=== PATIENT | female | born 1975 | race Caucasian/White ===

== ENCOUNTER → 2016-12-30 | Outpatient (CLI) | payer MEDICAID | END | disposition home or self-care (01) | LOC: CARD 12:12 | PROVIDERS: ATTEND Nurse Practitioner | DX: R06.02 Shortness of breath (principal) | CPT/HCPCS: 94060; 94620; 94726; 94729 ==

== ENCOUNTER 2019-10-29 14:45 | Outpatient (CLI) | payer MEDICAID ==
[2019-10-29] MEDS ORDERED: ERGO500017 PO (15:39)
[2019-10-29] MEDS ORDERED: ALPR0.5T6 PO (15:39)
== END 2019-10-29 23:59 | disposition home or self-care (01) ==
LOC: STAR 14:45
PROVIDERS: ATTEND Internal Medicine
DX: Z02.9 Encounter for administrative examinations, unspecified (principal)

== ENCOUNTER 2019-11-02 10:29 | Day surgery (SDC) | payer MEDICAID ==
[~2019-11-02] VITALS: Ht 157.5 cm; Wt 51.2 kg
[~2019-11-02 10:29] MED LIST: ALPR0.5T6 PO; ERGO500017 PO
[2019-11-02] MEDS ORDERED: LACTATED RINGERS 1,000 ML IV ONE (10:40)
[2019-11-02 10:42] VITALS: BP 123/89
[2019-11-02 11:15] LABS: HCG UR SG 1.016 (1.003-1.030)
[2019-11-02] MEDS ORDERED: MIDAZOLAM 1 MG/ML, 2ML ONE (11:43)
[2019-11-02] MEDS ORDERED: FENTANYL PF 250 MCG/5ML ONE (11:43)
[2019-11-02] MEDS ORDERED: METOPROLOL 1 MG/ML, 5ML IV PRN (13:00)
[2019-11-02] MEDS ORDERED: HYDROmorphone 2 MG/ML, 1ML IVPush PRN (13:00)
[2019-11-02] MEDS ORDERED: FENTANYL PF 100 MCG/2ML IV PRN (13:00)
[2019-11-02] MEDS ORDERED: hydrALAzine 20 MG/ML, 1ML IV PRN (13:00)
[2019-11-02] MEDS ORDERED: OXYcodone 5 MG/5 ML ORAL.SOL UDC PO PRN (13:00)
[2019-11-02] MEDS ORDERED: MIDAZOLAM 1 MG/ML, 2ML IV PRN (13:00)
[2019-11-02] MEDS ORDERED: ALBUTEROL/IPRATROPIUM 2.5MG/0.5MG, 3 ML NPPB PRN (13:00)
[2019-11-02] MEDS ORDERED: MEPERIDINE/PF 25MG/ML,1ML IVPush PRN (13:00)
[2019-11-02] MEDS ORDERED: ACETAMINOPHEN 325 MG TABLET PO PRN (13:00)
[2019-11-02] MEDS ORDERED: PROMETHAZINE 25 MG/ML, 1ML IV PRN (13:00)
[2019-11-02] MEDS ORDERED: ROCURONIUM 10MG/ML,5ML ONE (13:22)
[2019-11-02] MEDS ORDERED: DEXAMETHASONE 4 MG/ML, 1ML ONE (13:22)
[2019-11-02] MEDS ORDERED: NEOSTIGMINE 1 MG/ML, 10ML ONE (13:22)
[2019-11-02] MEDS ORDERED: PROPOFOL 10 MG/ML, 20ML ONE (13:22)
[2019-11-02] MEDS ORDERED: ONDANSETRON 2MG/ML, 2ML ONE (13:22)
[2019-11-02] MEDS ORDERED: GLYCOPYRROLATE 0.2MG/1ML, 5ML ONE (13:22)
[2019-11-02] MEDS ORDERED: FENTANYL PF 100 MCG/2ML ONE (13:32)
== END 2019-11-02 15:20 | disposition home or self-care (01) ==
LOC: OUT 10:29
PROVIDERS: ATTEND Internal Medicine
DX: R91.8 Other nonspecific abnormal finding of lung field (principal); J44.9 Chronic obstructive pulmonary disease, unspecified; F41.9 Anxiety disorder, unspecified; F17.210 Nicotine dependence, cigarettes, uncomplicated; Z79.899 Other long term (current) drug therapy
CPT/HCPCS: 31624; 31627; 31628; 36415; 71045; 81025; 86480; 86635; 86698; 87015; 87070; 87102; 87116; 87181; 87186; 87205; 87206; 88112; 88172; 88173; 88177; 88305; J1100; J2250; J2405; J2704; J2710; J3010; J7120; 76000

== ENCOUNTER 2019-12-04 12:12 | Outpatient (CLI) | payer MEDICAID | END 2019-12-04 23:59 | disposition home or self-care (01) | LOC: PETCFH 12:12 | PROVIDERS: ATTEND Internal Medicine | DX: R91.1 Solitary pulmonary nodule (principal) | CPT/HCPCS: 78815; A9552 ==

== ENCOUNTER 2019-12-20 06:05 | Inpatient (IN) | payer MEDICAID ==
[~2019-12-20] VITALS: Ht 157.5 cm; Wt 53.0 kg
[2019-12-20 06:26] VITALS: BP 124/87
[2019-12-20] MEDS ORDERED: FENTANYL PF 100 MCG/2ML ONE ×2 (07:52→16:13)
[2019-12-20] MEDS ORDERED: MIDAZOLAM 1 MG/ML, 5ML ONE ×2 (07:52→16:13)
[2019-12-20] MEDS ORDERED: FLUMAZENIL 0.1 MG/1 ML, 5ML ONE (07:52)
[2019-12-20] MEDS ORDERED: NALOXONE 1 MG/ML, 2ML ONE (07:52)
[2019-12-20] MEDS ORDERED: OXYcodone/APAP 5/325MG TABLET PO ONE ×2 (10:00→15:00)
[2019-12-20] MEDS ORDERED: LIDOCAINE 1%, 10ML ONE (16:35)
[2019-12-20] MEDS ORDERED: morphine SULFATE 10 MG/ML, 1ML IVPush PRN (17:30)
[2019-12-20] MEDS ORDERED: LABETALOL 5MG/ML, 20ML IVPush PRN (17:30)
[2019-12-20] MEDS ORDERED: hydrALAzine 20 MG/ML, 1ML IVPush PRN (17:30)
[2019-12-20] MEDS ORDERED: ONDANSETRON 2MG/ML, 2ML IVPush PRN (17:30)
[2019-12-20] MEDS ORDERED: ACETAMINOPHEN 325 MG TABLET PO PRN (17:30)
[2019-12-20] MEDS ORDERED: PROMETHAZINE 25 MG/ML, 1ML IM PRN (17:30)
[2019-12-20 18:02] LABS: BASOPHILS # (AUTO) 0.02 x10^3/uL (0-0.1); BASOPHILS % (AUTO) 0 % (0-1); EOSINOPHILS # (AUTO) 0.05 x10^3/uL (0-0.4); EOSINOPHILS % (AUTO) 1 % (1-7); LYMPHOCYTES # (AUTO) 1.22 x10^3/uL (1-3.4); LYMPHOCYTES % (AUTO) 14 % (22-44); MD NO; MEAN CORPUSCULAR HEMOGLOBIN 32.2 pg (27.0-34.8); MEAN CORPUSCULAR HGB CONC 33.4 g/dL (32.4-35.8); MEAN CORPUSCULAR VOLUME 96.3 fL (80-100); MEAN PLATELET VOLUME 7.2 fL (7.4-10.4); MONOCYTES # (AUTO) 0.75 x10^3/uL (0.2-0.8); MONOCYTES % (AUTO) 8 % (2-9); NEUTROPHILS # (AUTO) 7.03 x10^3/uL (1.8-6.8); NEUTROPHILS % (AUTO) 78 % (42-75); PLATELET COUNT 307 x10^3/uL (130-400); RED BLOOD COUNT 4.33 x10^6/uL (3.82-5.3); RED CELL DISTRIBUTION WIDTH 14.4 % (9.6-15.2)
[2019-12-20] MEDS: HYDROcodone/APAP 5/325 TABLET PO PRN ×2 (18:02→22:28)
[2019-12-20 18:14] LABS: ALBUMIN 3.7 g/dL (3.4-5.0); ANION GAP 6 mmol/L (5-15); CALCIUM 8.8 mg/dL (8.5-10.1); CHLORIDE 108 mmol/L (98-107)
[2019-12-20 18:18] LABS: ALANINE AMINOTRANSFERASE 57 U/L (12-78); ALKALINE PHOSPHATASE 67 U/L (45-117); BILIRUBIN,TOTAL 0.6 mg/dL (0.2-1.0); CREATININE 0.51 mg/dL (0.55-1.02); TOTAL PROTEIN 7.4 g/dL (6.4-8.2)
[2019-12-20 18:34] VITALS: BP 132/86
[2019-12-21 00:25] VITALS: BP 128/82
[2019-12-21 04:04] VITALS: BP 124/80
[2019-12-21 05:14] LABS: BASOPHILS # (AUTO) 0.01 x10^3/uL (0-0.1); BASOPHILS % (AUTO) 0 % (0-1); EOSINOPHILS % (AUTO) 1 % (1-7); LYMPHOCYTES # (AUTO) 1.49 x10^3/uL (1-3.4); LYMPHOCYTES % (AUTO) 17 % (22-44); MD NO; MEAN CORPUSCULAR HEMOGLOBIN 32.6 pg (27.0-34.8); MEAN CORPUSCULAR HGB CONC 34.4 g/dL (32.4-35.8); MEAN CORPUSCULAR VOLUME 94.9 fL (80-100); MEAN PLATELET VOLUME 7.3 fL (7.4-10.4); MONOCYTES # (AUTO) 0.83 x10^3/uL (0.2-0.8); MONOCYTES % (AUTO) 10 % (2-9); NEUTROPHILS # (AUTO) 6.23 x10^3/uL (1.8-6.8); NEUTROPHILS % (AUTO) 72 % (42-75); PLATELET COUNT 283 x10^3/uL (130-400); RED BLOOD COUNT 4.23 x10^6/uL (3.82-5.3); RED CELL DISTRIBUTION WIDTH 14.5 % (9.6-15.2)
[2019-12-21 05:20] LABS: ALANINE AMINOTRANSFERASE 46 U/L (12-78); ALBUMIN 3.3 g/dL (3.4-5.0); ANION GAP 5 mmol/L (5-15); CALCIUM 8.8 mg/dL (8.5-10.1); CHLORIDE 106 mmol/L (98-107)
[2019-12-21 05:23] LABS: ALKALINE PHOSPHATASE 65 U/L (45-117); BILIRUBIN,TOTAL 0.9 mg/dL (0.2-1.0); CREATININE 0.56 mg/dL (0.55-1.02); TOTAL PROTEIN 7.1 g/dL (6.4-8.2)
[2019-12-21] MEDS: NICOTINE 14MG/24 HR PATCH.TD24 TD SCH (06:09)
[2019-12-21 07:04] VITALS: BP 124/79
[2019-12-21] MEDS: THIAMINE 100MG TABLET PO SCH (08:29)
[2019-12-21] MEDS: HYDROcodone/APAP 5/325 TABLET PO PRN ×3 (08:29→20:46)
[2019-12-21] MEDS: FOLIC ACID 1 MG TABLET PO SCH (08:29)
[2019-12-21 13:36] VITALS: BP 126/89
[2019-12-21 21:04] VITALS: BP 122/81
[2019-12-22] MEDS: HYDROcodone/APAP 5/325 TABLET PO PRN ×5 (01:51→19:47)
[2019-12-22 02:01] VITALS: BP 129/87
[2019-12-22] MEDS: NICOTINE 14MG/24 HR PATCH.TD24 TD SCH (06:00)
[2019-12-22 06:32] VITALS: BP 138/96
[2019-12-22] MEDS: THIAMINE 100MG TABLET PO SCH (07:53)
[2019-12-22] MEDS: FOLIC ACID 1 MG TABLET PO SCH (07:53)
[2019-12-22 12:55] VITALS: BP 114/66
[2019-12-22 20:01] VITALS: BP 125/78
[2019-12-23] MEDS: HYDROcodone/APAP 5/325 TABLET PO PRN ×4 (02:52→16:43)
[2019-12-23 03:13] VITALS: BP 118/76
[2019-12-23] MEDS: NICOTINE 14MG/24 HR PATCH.TD24 TD SCH (05:45)
[2019-12-23 07:23] VITALS: BP 119/78
[2019-12-23] MEDS: FOLIC ACID 1 MG TABLET PO SCH (08:43)
[2019-12-23] MEDS: THIAMINE 100MG TABLET PO SCH (08:43)
[2019-12-23 13:35] VITALS: BP 114/69
[2019-12-23 13:47] VITALS: BP 123/75
[2019-12-23] MEDS ORDERED: NICO-486 TD (14:26)
[2019-12-23 15:12] VITALS: BP 127/89
[2019-12-23] MEDS ORDERED: IBUP-1222 PO (16:22)
[2019-12-23] MEDS ORDERED: ACET325T26 PO (16:22)
[2019-12-23 16:44] VITALS: BP 123/85
[2019-12-25] MEDS ORDERED: ERGOCALCIFEROL 50,000 UNIT CAPSULE PO SCH (09:00)
== END 2019-12-23 17:07 | disposition home or self-care (01) | DRG 143 ==
LOC: OUT 06:05 → EDSTATUS 08:00 → 4NE 17:05 → OUT 23:58
PROVIDERS: ADMIT Internal Medicine; ATTEND Internal Medicine
PROC: 0BBL3ZX Excision of Left Lung, Percutaneous Approach, Diagnostic (ICD-10-PCS; 2019-12-20)
PROC: 0W9B30Z Drainage of Left Pleural Cavity with Drainage Device, Percutaneous Approach (ICD-10-PCS; principal; 2019-12-22)
DX: J93.83 Other pneumothorax (principal); F17.210 Nicotine dependence, cigarettes, uncomplicated; R91.8 Other nonspecific abnormal finding of lung field; J45.909 Unspecified asthma, uncomplicated; Z80.1 Family history of malignant neoplasm of trachea, bronchus and lung; Z71.6 Tobacco abuse counseling
CPT/HCPCS: 32405; 32551; 32557; 36415; 71045; 77012; 80053; 85025; 88172; 88173; 88177; 99156; 99157; G0378; J2250; J3010; C1729; J2310

== ENCOUNTER → 2020-01-23 | Outpatient (CLI) | payer MEDICAID ==
[~2020-01-23] MED LIST changes: +ACET325T26 PO; +IBUP-1222 PO; +NICO-486 TD
== END | disposition home or self-care (01) ==
LOC: RAD 16:53 → EDSTATUS 17:30
PROVIDERS: ATTEND Internal Medicine Infectious Disease
DX: R91.8 Other nonspecific abnormal finding of lung field (principal); A31.0 Pulmonary mycobacterial infection; J84.10 Pulmonary fibrosis, unspecified; R59.0 Localized enlarged lymph nodes; J44.9 Chronic obstructive pulmonary disease, unspecified
CPT/HCPCS: 71250